=== PATIENT | female | born 1995 | race Caucasian/White ===

== ENCOUNTER 2017-03-12 18:17 | Emergency (ER) | payer OTHER ==
[~2017-03-12] VITALS: Ht 152.4 cm; Wt 51.5 kg
[~2017-03-12 18:17] MED LIST: NAPR550 PO
[2017-03-12 18:18] VITALS: BP 135/72; PULSE 114; RESP 17; TEMP 98.2; O2SAT 98
--- NOTE | 2017-03-12 18:42 | PD ---
HPI Chief Complaint: Complaint Time Seen by Provider: 18:42 Travel History International Travel<30 days: No Contact w/Intl Traveler<30days: No Traveled to known affect area: No History of Present Illness HPI 22-year-old female with no significant medical history presents to the emergency department for evaluation of urinary frequency, urgency, and burning intermittently over the last 2 months but more consistent over the last week. Patient denies any fever or chills. Mild low back pain. No vaginal discharge or bleeding. Patient states she is not . No other symptoms to report. PFSH Past Medical History Diminished Hearing: No Immunizations Current: Yes ?: Not Past Surgical History Other Surgery: Yes (a growth removed from her throat in period) Social History Alcohol Use: No Tobacco Use: No Substance Use: No Allergies-Medications (Allergen,Severity, Reaction): Coded Allergies: Codeine (Unverified Adverse Reaction, Severe, 03/12/17) Reported Meds & Prescriptions Reported Meds & Active Scripts Active Keflex (Cephalexin) 500 Mg Cap 500 Mg PO Q12H 7 Days Review of Systems Except as stated in HPI: all other systems reviewed are Neg Physical Exam Narrative GENERAL: Well-nourished, well-developed female patient, in no acute distress SKIN: Focused skin assessment warm/dry. HEAD: Normocephalic. EYES: No scleral icterus. No injection or drainage. NECK: Supple, trachea midline. No JVD or lymphadenopathy. CARDIOVASCULAR: Regular rate and rhythm without murmurs, gallops, or rubs. RESPIRATORY: Breath sounds equal bilaterally. No accessory muscle use. GASTROINTESTINAL: Abdomen soft, non-tender, nondistended. MUSCULOSKELETAL: No cyanosis, or edema. BACK: Nontender without obvious deformity. No CVA tenderness. Data Data Last Documented VS Vital Signs Date Time Temp Pulse Resp B/P Pulse Ox O2 Delivery O2 Flow Rate FiO2 03/12/17 18:18 98.2 114 17 135/72 98 Orders Urinalysis - C+S If Indicated (03/12/17 18:23) Ed Urine Pregnancytest Poc (03/12/17 18:40) Urine Culture (03/12/17 18:25) Ceftriaxone Inj (Rocephin Inj) (03/12/17 19:15) Lidocaine 1% Inj (50 Ml) (Xylocaine 1% I (03/12/17 19:15) Labs Laboratory Tests Test 03/12/17 18:25 Urine Color YELLOW Urine Turbidity HAZY Urine pH 5.5 Urine Specific [place] 1.027 Urine Protein 30 mg/dL Urine Glucose (UA) NEG mg/dL Urine Ketones 10 mg/dL Urine Occult Blood SMALL Urine Nitrite NEG Urine Bilirubin NEG Urine Urobilinogen LESS THAN 2.0 MG/DL Urine Leukocyte Esterase LARGE Urine RBC 9 /hpf Urine WBC 112 /hpf Urine Squamous Epithelial 3 /hpf Cells Urine Amorphous Sediment RARE Urine Bacteria FEW /hpf Urine Mucus MANY /lpf Microscopic Urinalysis Comment CULTURE INDICATED MDM Medical Decision Making Medical Screen Exam Complete: Yes Emergency Medical Condition: Yes Medical Record Reviewed: Yes Differential Diagnosis Cystitis versus vaginitis versus urethritis versus pyelonephritis Narrative Course 22 year-old female presents to emergency department for evaluation of urinary urgency, frequency, burning. Patient appears without distress. She is moderately bradycardic but she is afebrile. She states she is anxious about being here. She is able to tolerate by mouth. I have encouraged by mouth fluids. Laboratory Tests Test 03/12/17 18:25 Urine Color YELLOW Urine Turbidity HAZY Urine pH 5.5 Urine Specific [place] 1.027 Urine Protein 30 mg/dL Urine Glucose (UA) NEG mg/dL Urine Ketones 10 mg/dL Urine Occult Blood SMALL Urine Nitrite NEG Urine Bilirubin NEG Urine Urobilinogen LESS THAN 2.0 MG/DL Urine Leukocyte Esterase LARGE Urine RBC 9 /hpf Urine WBC 112 /hpf Urine Squamous Epithelial 3 /hpf Cells Urine Amorphous Sediment RARE Urine Bacteria FEW /hpf Urine Mucus MANY /lpf Microscopic Urinalysis Comment CULTURE INDICATED Patient is given Rocephin here. She'll be started on oral Keflex. She is encouraged to follow-up with primary care provider. She agrees to return immediately with any acute worsening. Diagnosis Primary Impression: UTI (urinary tract infection) Qualified Code: N39.0 - Urinary tract infection with hematuria, site unspecified Referrals: Primary Care Physician Patient Instructions: General Instructions, Urinary Tract Infection in Women ( ED) Additional Instructions: Maintain adequate oral hydration Follow-up with the primary care provider Return immediately with any acute worsening of symptoms Med/Other Pt SpecificInfo: Prescription(s) given Scripts Cephalexin (Keflex)500 Mg [id number] Mg PO Q12H 7 Days Ref 0 Prov:Lisa Howell 03/12/17 Disposition: 01 DISCHARGE HOME Condition: Stable Lisa Howell Mar 12, 2017 18:42
[2017-03-12 19:04] LABS: BACTERIA, URINE FEW /hpf; BLOOD, URINE SMALL (NEG); COMMENT (UR) CULTURE INDICATED; CULTURE IF INDICATED CULTURE INDICATED; GLUCOSE,URINE NEG (NEG); KETONE, URINE 10 mg/dL (NEG); MUCUS URINE MANY /lpf (OCC); NITRITE,URINE NEG (NEG); PH, URINE 5.5 (5.0-8.5); SQUAMOUS EPITHELIAL CELL URINE 3 /hpf (0-5); URINE COLOR YELLOW (YELLW/STRAW)
[2017-03-12] MEDS ORDERED: LIDOCAINE HCL 1% 50 ML VIAL XX ONE (19:15)
[2017-03-12] MEDS ORDERED: CEPH-460 PO (19:17)
== END 2017-03-12 19:53 | disposition home or self-care (01) ==
LOC: NEPD 18:17
DX: N39.0 Urinary tract infection, site not specified (principal); M54.5 Low back pain
CPT/HCPCS: 81001; 87086; 96372; 99284; J0696